=== PATIENT | male | born 1965 | race Caucasian/White ===

== ENCOUNTER 2024-06-16 10:13 | Emergency (ER) | payer BC ==
[2024-06-16] MEDS ORDERED: Sodium Chloride 0.9% 10 ML Syringe FLUSH PRN (10:47)
[2024-06-16 10:55] LABS: BASOPHILS ABSOLUTE AUTO 0.02 K/uL (0.02-0.10); BASOPHILS PERCENT AUTO 0.3 % (0.0-0.5); EOSINOPHILS ABSOLUTE AUTO 0.26 K/uL (0.04-0.40); EOSINOPHILS PERCENT AUTO 3.9 % (1.0-5.0); LYMPHOCYTES ABSOLUTE AUTO 1.94 K/uL (1.50-4.00); LYMPHOCYTES PERCENT AUTO 28.7 % (20.0-40.0); MEAN CORPUSCULAR HEMOGLOBIN 29.9 pg (27.0-32.0); MEAN CORPUSCULAR HGB CONC 33.3 g/dL (31.0-35.0); MEAN CORPUSCULAR VOLUME 90 fL (76-96); MONOCYTES ABSOLUTE AUTO 0.45 K/uL (0.20-0.80); MONOCYTES PERCENT AUTO 6.7 % (3.0-10.0); NEUTROPHILS ABSOLUTE AUTO 4.08 K/uL (2.00-7.50); NEUTROPHILS PERCENT AUTO 60.4 % (45.0-70.0); PLATELET COUNT,PLT 327 K/uL (150-400); RED BLOOD CELL COUNT 4.68 M/uL (4.50-6.50); RED CELL DISTRIBUTION WIDTH 13.9 % (11.0-16.0); WHITE BLOOD CELL COUNT,WBC 6.8 K/uL (4.0-11.0)
[2024-06-16 11:18] LABS: ANION GAP 11.9 mmol/L (5.0-15.0); BLOOD UREA NITROGEN,BUN 24 mg/dL (8-26); BUN/CREATININE RATIO 23.1 (6-25); CALCIUM 8.9 mg/dL (8.5-10.1); CARBON DIOXIDE,CO2 29.4 mmol/L (21.0-32.0); CHLORIDE,CL 103 mmol/L (98-107); CREATININE 1.04 mg/dL (0.70-1.30); EST CRCL DRUG DOSING (CG) 75.53 mL/min; ESTIMATED GFR 82 mL/min (>60); GLUCOSE RANDOM 108 mg/dL (74-100); POTASSIUM,K 4.3 mmol/L (3.5-5.1); SODIUM,NA 140 mmol/L (136-145)
[2024-06-16 11:31] LABS: C-REACTIVE PROTEIN < 5.0 mg/L (<5.0)
[2024-06-16] MEDS: Iopamidol 612 MG/ML 100 ML Bottle IV SCH (11:41)
[2024-06-16] MEDS: Sodium Chloride 0.9% 50 ML SDV FLUSH ONE (11:41)
[2024-06-16 11:42] LABS: APPEARANCE,URINE CLOUDY (CLEAR); COLOR,URINE BROWN
[2024-06-16 11:47] LABS: BILIRUBIN,URINE SMALL (NEGATIVE); GLUCOSE,URINE 100 mg/dL (NEGATIVE); KETONES,URINE TRACE mg/dL (NEGATIVE); PH,URINE 5.5 (5.0-8.0); PROTEIN,URINE >=300 mg/dL (NEGATIVE); UROBILINOGEN,URINE 0.2 E.U./dL (0.2-1.0)
[2024-06-16 11:48] LABS: BACTERIA,URINE FEW /HPF; NITRITE,URINE NEGATIVE (NEGATIVE); RBC,URINE 50-75 /HPF
== END 2024-06-16 13:27 | disposition home or self-care (01) ==
LOC: LB.ED 10:13
DX: N13.2 Hydronephrosis with renal and ureteral calculous obstruction (principal); E78.00 Pure hypercholesterolemia, unspecified; Z79.899 Other long term (current) drug therapy
CPT/HCPCS: 36415; 74178; 80048; 81001; 85025; 86140; 87086; 99283; 99284; J3490; Q9967

== ENCOUNTER 2024-12-01 07:36 | Day surgery (SDC) | payer BC ==
[~2024-12-01 07:36] MED LIST: Acetaminophen/HYDROcodone 325-5 MG Tab PO PRN; Ondansetron 4 MG/2 ML SDV IVPUSH PRN
[2024-12-01] MEDS: Lactated Ringers 1,000 ML IV SCH (08:23)
[2024-12-01] MEDS ORDERED: Midazolam 1 MG/ML 2 ML SDV ONE (09:45)
[2024-12-01] MEDS ORDERED: Propofol 200 MG/20 ML SDV ONE (09:45)
[2024-12-01] MEDS ORDERED: Atropine 0.4 MG/ML SDV ONE (09:45)
== END 2024-12-01 12:50 | disposition home or self-care (01) ==
LOC: LB.SDS 07:36
PROVIDERS: ATTEND Surgery
DX: K43.9 Ventral hernia without obstruction or gangrene (principal); Z88.8 Allergy status to other drugs, medicaments and biological substances; Z87.891 Personal history of nicotine dependence; Z79.899 Other long term (current) drug therapy
CPT/HCPCS: C1781; J0461; J0690; J2250; J2270; J2704; J2710; J3490; J7120

== ENCOUNTER 2024-12-07 12:45 | Emergency (ER) | payer BC ==
[2024-12-07] MEDS ORDERED: Sodium Chloride 0.9% 10 ML Syringe FLUSH PRN (13:14)
== END 2024-12-07 14:14 | disposition home or self-care (01) ==
LOC: LB.ED 12:45
DX: L03.311 Cellulitis of abdominal wall (principal); E78.00 Pure hypercholesterolemia, unspecified; Z79.899 Other long term (current) drug therapy
CPT/HCPCS: 96365; 99283-25; J0696